=== PATIENT | female | born 1930 | race Caucasian/White ===

== ENCOUNTER 2016-11-20 22:00 | Emergency (ER) | payer MEDICARE ==
[2016-05-24 12:01] VITALS: BMI 23.9
[~2016-11-20 22:00] MED LIST: ACETAMINOPHEN500 M1 PO; ACIDOPHILUS LAC1 CAP PO; ADVAIR HFA [SP]12 GM INH; ATIVAN1 MG PO; ATROVENT 0.02%2.5 ML UPD; AUGMENTIN 875-11 TAB PO; BROVANA15 MCG/2 M INH; CALAN SR120 MG PO; CALAN SR240 MG PO; CELEXA20 MG PO; CLEOCIN HCL300 MG PO; CORTANE-B OTIC10 ML RIGHT EAR; DITROPAN X5 MG/BOTTL PO; ELIQUIS2.5 MG PO; FERROUS SULFAT325 MG PO; FORTAZ IV; HYDROCODONE-APA1 TAB PO; IMODIUM2 MG PO; IPRAT-ALBUT 0.5-3 ML INH; IPRAT-ALBUT 0.5-3 ML UPD; K-DUR20 MEQ PO; LACTINEX GRANUL1 PCK PO; LASIX20 MG PO; LEVAQUIN500 MG PO; LEVAQUIN750 MG PO; LOMOTIL TABLET1 TAB PO; LOPRESSOR25 MG PO; METOPROLOL TART50 MG PO; MILK OF MAGNESI30 ML PO; MORPHINE SUL20 MG/ML SL; MORPHINE SULFAT60 M5 PO; MUCINEX600 MG PO; NITROSTAT0.4 MG SL; OMEPRAZOLE20 M1 PO; PERFOROMIS20 MCG/21 INH; PHENERGAN25 M1 PO; PREDNISONE10 MG PO; PREDNISONE5 MG PO; PRILOSEC20 MG PO; PROAIR HFA8.5 GM INH; PULMICORT0.5 MG/21 INH; RESTORIL7.5 MG PO; SENNA LAXATIVE8.6 MG PO; SINGULAIR10 MG PO; SPIRIVA18 MCG INH; STERAPRED DS 1210 MG PO; SYMBICORT 16010.2 GM INH; TESSALON PERLE100 MG PO; XOPENEX 1.1.25 MG/3 UPD; [UNRECOGNIZED DRUG - OTHER] IV
== END 2016-11-21 01:03 | disposition other institution (70) ==
LOC: D.ER 22:00
DX: S00.03XA Contusion of scalp, initial encounter (principal); S20.219A Contusion of unspecified front wall of thorax, initial encounter; W01.0XXA Fall on same level from slipping, tripping and stumbling without subsequent striking against object, initial encounter; Y93.89 Activity, other specified; Y92.129 Unspecified place in nursing home as the place of occurrence of the external cause